=== PATIENT | male | born 1960 | race Caucasian/White ===

== ENCOUNTER 2020-09-03 07:50 | Day surgery (SDC) | payer OTHER ==
[~2020-09-03] VITALS: Ht 172.7 cm; Wt 72.6 kg
[2020-09-03 08:18] VITALS: BP 130/90
[2020-09-03 12:45] VITALS: BP 126/78
== END 2020-09-03 12:20 ==
LOC: DS 07:50 → OR 10:00 → DS 12:20
PROVIDERS: ATTEND Internal Medicine Gastroenterology
DX: K62.5 Hemorrhage of anus and rectum (principal); K64.8 Other hemorrhoids
CPT/HCPCS: 45378; J1200; J1610; J2250; J2310; J3010; J3490